=== PATIENT | male | born 1935 | race Caucasian/White ===

== ENCOUNTER 2019-02-16 19:37 | Inpatient (IN) | payer MEDICARE ==
[2019-02-16 20:02] VITALS: BMI 20.5
[2019-02-16] MEDS ORDERED: Acetaminophen 325 MG TAB PO PRN (22:57)
[2019-02-16] MEDS ORDERED: Ventolin HFA Inhaler 60 PUFF INHALER INH PRN (22:58)
[2019-02-16] MEDS ORDERED: Benzonatate 100 MG CAP PO PRN (22:59)
[2019-02-16] MEDS ORDERED: Ipratropium Bromide 0.03% Nasal Inhaler 30 ml Bottle EA NARE PRN (23:03)
[2019-02-16] MEDS ORDERED: Nystatin Powder 15 GM BOT TOP PRN (23:04)
[2019-02-16] MEDS ORDERED: Ondansetron ODT 4 MG TAB PO PRN (23:04)
[2019-02-17] MEDS: Ipratropium Bromide 2.5 ml Neb NEB SCH ×4 (01:20→17:59)
[2019-02-17 05:30] LABS: #Basophils 0.1 thou/uL (0.0-0.2); #Eosinphils 0.5 thou/uL (0.0-0.7); #Lymphocytes 1.9 thou/uL (1.20-3.40); #Monocytes 0.9 thou/uL (0.11-0.59); #Neutrophils 6.8 thou/uL (1.40-6.50); %Basophils 1.4 % (0.0-1.0); %Eosinophils 4.5 % (0.0-10.0); %Lymphocytes 18.7 % (21.0-51.0); %Monocytes 8.9 % (0.0-10.0); %Neutrophils 66.6 % (42.0-75.0); Hemoglobin 8.6 g/dL (14.0-18.0); Mean Corpuscular HGB CONC 31.4 g/dL (32.0-36.0); Mean Corpuscular Hemoglobin 27.2 pg (27.0-31.0); Mean Corpuscular Volume 86.8 fL (78.0-98.0); Mean Platelet Volume 7.2 fL (7.4-10.4); Platelet Count 268 thou/uL (130-400); RBC Distribution Width 15.7 % (11.5-14.5); Red Blood Cell (RBC) Count 3.16 mill/uL (4.70-6.10); White Blood Cell (WBC) Count 10.1 thou/uL (4.8-10.8)
[2019-02-17 05:44] LABS: ALT (SGPT) 12 U/L (8-55); AST (SGOT) 17 U/L (5-34); Albumin 2.9 g/dL (3.4-4.8); Alkaline Phosphatase 77 U/L (40-150); Anion Gap 11 mmol/L (10-20); BUN (Urea Nitrogen) 8 mg/dL (8.4-25.7); Bilirubin, Total 0.4 mg/dL (0.2-1.2); Calc. Creatinine Clearance 82 mL/min (70-130); Calcium 8.4 mg/dL (7.8-10.44); Carbon Dioxide 28 mmol/L (23-31); Chloride 107 mmol/L (98-107); Estimated GFR-MDRD Greater than 90; Globulin 2.6 g/dL (2.4-3.5); Glucose 94 mg/dL (83-110); Potassium 3.2 mmol/L (3.5-5.1); Protein, Total 5.5 g/dL (5.8-8.1); Sodium 143 mmol/L (136-145)
[2019-02-17] MEDS: Folic Acid 1 MG TAB PO SCH (09:01)
[2019-02-17] MEDS: Digoxin 0.125 MG TAB PO SCH (09:02)
[2019-02-17] MEDS: Multivitamin W/ Minerals 1 TAB PO SCH (09:02)
[2019-02-17] MEDS: Cyanocobalamin (Vitamin B-12) 1,000 MCG TAB PO SCH (09:02)
[2019-02-17] MEDS: Amoxicillin/Potassium Clav 875 MG TAB PO SCH ×2 (09:02→21:30)
[2019-02-17] MEDS: Ketotifen Fumarate 0.025% Ophth Soln 5 ml Bottle EA EYE SCH ×2 (09:02→21:30)
--- NOTE | 2019-02-17 16:03 | HP ---
CHIEF COMPLAINT: Recent admission to [facility] in [place] with aspiration pneumonia and acute respiratory failure, who has been treated appropriately and has been transferred here for therapy. BRIEF HISTORY: This is a pleasant 83-year-old male with history of movement disorder and presence of deep brain stimulator has history of recurrent aspiration. He was brought to the hospital with fever, and workup showed new right-sided pleural effusion, which progressed to bilateral infiltrates and bilateral pleural effusion. He was started on antibiotic therapy. He did require BiPAP for a short period. He did improve enough and was felt to be a candidate for inpatient rehabilitation, so transferred here. The patient is currently sitting up in his chair and eating his pureed diet. No family at bedside. It is really actually more a mechanically soft diet. He denies any fever or chills. Discussed with nursing. PAST MEDICAL HISTORY: 1. Chronic atrial fibrillation. 2. Chronic obstructive pulmonary disease. 3. Benign prostatic hypertrophy, requiring indwelling suprapubic catheter. 4. Hypertension. 5. Depression. 6. Recurrent episodes of aspiration. 7. Asymptomatic bacteriuria. 8. Non-Parkinson's type movement disorder. PAST SURGICAL HISTORY: 1. Suprapubic catheter placement. 2. Bilateral hip replacement. 3. Presence of deep brain stimulator placement. 4. Transurethral resection of the prostate. FAMILY HISTORY: Noncontributory to current admission. PSYCHOSOCIAL HISTORY: Former smoker, remote. Denies any alcohol or recreational drug abuse. He is a DNR per old records. ALLERGIES: NO KNOWN DRUG ALLERGIES. MEDICATIONS: He has been transferred here on the following medications: 1. Augmentin 875 mg p.o. b.i.d. till February 19. 2. Digoxin 0.25 mg daily. 3. Diltiazem 120 mg daily. 4. Folic acid 1 mg daily. 5. Ketotifen fumarate 1 drop in each eye b.i.d. 6. Zofran 4 mg ODT q.6 p.r.n. 7. Protonix 40 mg daily. 8. Spiriva 18 mcg inhaled daily. 9. Albuterol via handheld nebulizer q.i.d. p.r.n. 10. Xanax 0.5 mg b.i.d. p.r.n. 11. Iron sulfate 325 mg t.i.d. 12. Lidex cream to hands b.i.d. 13. Ipratropium nasal spray 1 spray in each nostril b.i.d. 14. Multivitamin 1 tablet daily. 15. Sertraline 100 mg daily. REVIEW OF SYSTEMS: CARDIOVASCULAR: The patient denies any chest pain, shortness of breath, palpitations, PND, orthopnea, or pedal edema. RESPIRATORY: Resolved shortness of breath, improving cough, occasional expectoration. Denies any hemoptysis. GASTROINTESTINAL: Denies any nausea, vomiting, diarrhea, constipation, hematemesis, melena, or hematochezia. GENITOURINARY: BPH, requiring chronic suprapubic catheter. CENTRAL NERVOUS SYSTEM: Awake and responsive. Cranial nerves 2 through 12 grossly intact. Mild rigidity noted. No tremors at present. Generalized weakness. No focal numbness, weakness, or fainting spells. Does have chronic movement disorder, which has been diagnosed as non-Parkinson's. PHYSICAL EXAMINATION: GENERAL: Pleasant 83-year-old male, who is resting comfortably in his chair and eating his lunch. No family at bedside. He responds appropriately to questions. VITAL SIGNS: He is afebrile, heart rate 68, respirations 18, oxygen saturation 97% on room air, blood pressure 138/82. HEENT: Normocephalic and atraumatic. Pupils are equally reactive to light and accommodation. NECK: No JVD, thyromegaly, cervical lymphadenopathy, throat exudates, or carotid bruits. CARDIOVASCULAR: S1 and S2 plus. Rate and rhythm are irregularly irregular. RESPIRATORY: Normal vesicular breath sounds with decreased breath sounds in the bases and occasional crackles. ABDOMEN: Soft and nontender. Bowel sounds in all quadrants. EXTREMITIES: Without cyanosis or clubbing. Some muscle atrophy is noted. Peripheral pulses are palpable. CENTRAL NERVOUS SYSTEM: AAO x3. Cranial nerves 2 through 12 intact. Generalized weakness. IMPRESSION: 1. Resolving aspiration pneumonitis. 2. Asymptomatic bacteriuria. 3. Resolved acute respiratory failure. 4. Chronic obstructive pulmonary disease. 5. Hypertension. 6. Paroxysmal atrial fibrillation. 7. Depression. 8. Benign prostatic hypertrophy. 9. Chronic indwelling Cannon catheter. 10. Non-Parkinson's type movement disorder. PLAN: 1. Continue discharge medications. 2. Monitor for continued improvement of his aspiration pneumonia. 3. Aspiration precautions. 4. Nutritional support. 5. DVT prophylaxis with PlexiPulses. 6. Decubitus precaution. 7. Stress ulcer prophylaxis with Protonix. 8. PT and OT eval and treat. 9. Routine laboratory values. 10. Cannon catheter care. 11. Discussed with the patient and nursing in detail, and all questions were answered. 12. Continue DNR status. 13. No family at bedside. Job ID: [id number]
[2019-02-17] MEDS: ALPRAZolam 0.5 MG TAB PO PRN (21:31)
[2019-02-18] MEDS: Ipratropium Bromide 2.5 ml Neb NEB SCH ×4 (04:18→17:48)
[2019-02-18] MEDS: Amoxicillin/Potassium Clav 875 MG TAB PO SCH ×2 (08:52→20:53)
[2019-02-18] MEDS: Ketotifen Fumarate 0.025% Ophth Soln 5 ml Bottle EA EYE SCH ×2 (08:52→21:26)
[2019-02-18] MEDS: Folic Acid 1 MG TAB PO SCH (08:52)
[2019-02-18] MEDS: Multivitamin W/ Minerals 1 TAB PO SCH (08:52)
[2019-02-18] MEDS: Cyanocobalamin (Vitamin B-12) 1,000 MCG TAB PO SCH (08:53)
[2019-02-18] MEDS: Digoxin 0.125 MG TAB PO SCH (08:53)
--- NOTE | 2019-02-18 15:49 | PRG ---
DATE OF SERVICE: 02/18/2019 SUBJECTIVE: Mr. Evans is doing well. Denies any concerns. His spouse is in the room. He is happy with his progress. Discussed with nursing, and apparently, he is feeling ornery today and refusing to follow directions. No risky behavior. OBJECTIVE: VITAL SIGNS: He is afebrile. Heart rate 70, respirations 20, oxygen saturation 98% on room air, blood pressure 142/83. CARDIOVASCULAR SYSTEM: S1 and S2 plus. RESPIRATORY SYSTEMS: Normal vesicular breath sounds. ABDOMEN: Soft, nontender. Bowel sounds heard in all quadrants. EXTREMITIES: Without cyanosis or clubbing. CENTRAL NERVOUS SYSTEM: Awake and responsive. Significant deconditioning and balance issues. IMPRESSION: 1. Chronic atrial fibrillation. 2. Chronic obstructive pulmonary disease. 3. BPH, requiring indwelling suprapubic catheter. 4. Hypertension. 5. Depression. 6. Recurrent episodes of aspiration and resolving aspiration pneumonitis. PLAN: 1. Continue current medications including antibiotics. 2. Aspiration precautions and nutritional support. 3. DVT and stress ulcer prophylaxis. 4. Decubitus precautions. 5. PT and OT treatment. 6. Routine laboratory values. 7. Stress ulcer prophylaxis. 8. Discussed with the patient, spouse, and nursing in detail. All questions answered. Job ID: [id number]
[2019-02-18] MEDS: Ferrous Sulfate 325 MG TAB PO SCH (20:53)
[2019-02-18] MEDS: ALPRAZolam 0.5 MG TAB PO PRN (20:54)
[2019-02-19] MEDS: Ipratropium Bromide 2.5 ml Neb NEB SCH ×4 (00:26→17:36)
[2019-02-19] MEDS: Amoxicillin/Potassium Clav 875 MG TAB PO SCH ×2 (09:32→21:19)
[2019-02-19] MEDS: Cyanocobalamin (Vitamin B-12) 1,000 MCG TAB PO SCH (09:32)
[2019-02-19] MEDS: Digoxin 0.125 MG TAB PO SCH (09:33)
[2019-02-19] MEDS: Multivitamin W/ Minerals 1 TAB PO SCH (09:33)
[2019-02-19] MEDS: Folic Acid 1 MG TAB PO SCH (09:33)
[2019-02-19] MEDS: Ketotifen Fumarate 0.025% Ophth Soln 5 ml Bottle EA EYE SCH ×2 (09:35→21:18)
[2019-02-19] MEDS: Ferrous Sulfate 325 MG TAB PO SCH (21:19)
[2019-02-19] MEDS: ALPRAZolam 0.5 MG TAB PO PRN (21:21)
[2019-02-20] MEDS: Ipratropium Bromide 2.5 ml Neb NEB SCH ×4 (00:47→17:28)
[2019-02-20] MEDS: Digoxin 0.125 MG TAB PO SCH (09:12)
[2019-02-20] MEDS: Folic Acid 1 MG TAB PO SCH (09:12)
[2019-02-20] MEDS: Multivitamin W/ Minerals 1 TAB PO SCH (09:12)
[2019-02-20] MEDS: Ketotifen Fumarate 0.025% Ophth Soln 5 ml Bottle EA EYE SCH ×2 (09:12→20:33)
[2019-02-20] MEDS: Cyanocobalamin (Vitamin B-12) 1,000 MCG TAB PO SCH (09:12)
[2019-02-20] MEDS ORDERED: Potassium Chloride 20 MEQ TAB PO SCH (13:45)
--- NOTE | 2019-02-20 14:01 | PRG ---
DATE OF SERVICE: 02/20/2019 SUBJECTIVE: Mr. Evans is doing well. Denies any complaints. Resting comfortably. Just working on his lunch. No family at bedside. OBJECTIVE: VITAL SIGNS: He is afebrile. Heart rate 63, respirations 20, oxygen saturation 95% on room air, blood pressure 113/58. CARDIOVASCULAR SYSTEM: S1, S2 plus. RESPIRATORY SYSTEM: Normal vesicular breath sounds. ABDOMEN: Soft, nontender. Bowel sounds heard in all quadrants. EXTREMITIES: Without cyanosis, clubbing. Peripheral pulses are palpable. CENTRAL NERVOUS SYSTEM: Awake and responsive. Generalized weakness. IMPRESSION: 1. Chronic atrial fibrillation. 2. Chronic obstructive pulmonary disease. 3. Benign prostatic hypertrophy requiring indwelling suprapubic catheter. 4. Hypertension. 5. Depression. 6. History of recurrent episodes of aspiration. 7. Resolving aspiration pneumonitis. PLAN: 1. Continue current medications. 2. Nutritional support with heart-healthy diet. 3. Aspiration precautions. 4. DVT prophylaxis with PlexiPulses. 5. Decubitus precautions. 6. Stress ulcer prophylaxis. 7. PT/OT. 8. Routine laboratory values. 9. Discussed with the patient in detail. All questions answered. Job ID: [id number]
--- NOTE | 2019-02-20 14:27 | PRG ---
DATE OF SERVICE: 02/19/2019 SUBJECTIVE: Mr. Evans is sleeping, but arousable. Denies any concerns. Just finished his breakfast. Discussed with nursing. OBJECTIVE: VITAL SIGNS: He is afebrile. Heart rate is 76, respirations 18, oxygen saturation 99% on room air, and blood pressure 144/80. CARDIOVASCULAR SYSTEM: S1 and S2 plus. RESPIRATORY SYSTEM: Normal vesicular breath sounds. ABDOMEN: Soft and nontender. Bowel sounds heard in all quadrants. EXTREMITIES: Without cyanosis or clubbing. CENTRAL NERVOUS SYSTEM: Significant deconditioning. IMPRESSION: 1. Resolving aspiration pneumonitis. 2. Chronic atrial fibrillation. 3. Chronic obstructive pulmonary disease. 4. Hypertension. 5. Depression. 6. Deconditioning. 7. BPH, requiring suprapubic catheter. 8. Hypokalemia. PLAN: 1. Continue current medications, but replace potassium. 2. Aspiration precautions. 3. Nutritional support. 4. DVT and stress ulcer prophylaxis. 5. Decubitus precautions. 6. PT/OT. 7. Catheter care. 8. Discussed with the patient in detail. All questions answered. Job ID: [id number]
[2019-02-21] MEDS: Ipratropium Bromide 2.5 ml Neb NEB SCH ×4 (00:41→15:40)
[2019-02-21 05:23] LABS: #Basophils 0.1 thou/uL (0.0-0.2); #Eosinphils 0.3 thou/uL (0.0-0.7); #Lymphocytes 1.7 thou/uL (1.20-3.40); #Monocytes 0.8 thou/uL (0.11-0.59); #Neutrophils 8.1 thou/uL (1.40-6.50); %Basophils 0.7 % (0.0-1.0); %Eosinophils 3.1 % (0.0-10.0); %Lymphocytes 15.7 % (21.0-51.0); %Monocytes 7.2 % (0.0-10.0); %Neutrophils 73.2 % (42.0-75.0); Hemoglobin 9.3 g/dL (14.0-18.0); Mean Corpuscular HGB CONC 31.3 g/dL (32.0-36.0); Mean Corpuscular Hemoglobin 27.6 pg (27.0-31.0); Mean Platelet Volume 6.7 fL (7.4-10.4); Platelet Count 329 thou/uL (130-400); RBC Distribution Width 16.8 % (11.5-14.5); Red Blood Cell (RBC) Count 3.37 mill/uL (4.70-6.10)
[2019-02-21 05:38] LABS: Anion Gap 12 mmol/L (10-20); BUN (Urea Nitrogen) 8 mg/dL (8.4-25.7); Calc. Creatinine Clearance 79 mL/min (70-130); Calcium 8.7 mg/dL (7.8-10.44); Carbon Dioxide 28 mmol/L (23-31); Chloride 104 mmol/L (98-107); Estimated GFR-MDRD Greater than 90; Glucose 98 mg/dL (83-110); Potassium 3.2 mmol/L (3.5-5.1); Sodium 141 mmol/L (136-145)
[2019-02-21] MEDS: Folic Acid 1 MG TAB PO SCH (08:56)
[2019-02-21] MEDS: Cyanocobalamin (Vitamin B-12) 1,000 MCG TAB PO SCH (08:56)
[2019-02-21] MEDS: Multivitamin W/ Minerals 1 TAB PO SCH (08:57)
[2019-02-21] MEDS: Ketotifen Fumarate 0.025% Ophth Soln 5 ml Bottle EA EYE SCH ×2 (08:57→21:44)
[2019-02-21] MEDS: Digoxin 0.125 MG TAB PO SCH (08:57)
--- NOTE | 2019-02-21 16:01 | PRG ---
DATE OF SERVICE: 02/21/2019 SUBJECTIVE: Mr. Evans is sitting up in his chair and watching TV. He is the most alert that I have seen him. He denies any questions or concerns. No family at bedside. He is having quite a bit of sediment draining from his catheter on and off, but no symptoms of UTI. OBJECTIVE: VITAL SIGNS: He is afebrile. Heart rate 74, respirations 16, blood pressure 138/74, oxygen saturation 94% on room air. CARDIOVASCULAR: S1 and S2 plus. RESPIRATORY: Normal vesicular breath sounds. ABDOMEN: Soft, nontender. Bowel sounds in all quadrants. EXTREMITIES: Without cyanosis, clubbing. CENTRAL NERVOUS SYSTEM: AAO x3. Cranial nerves 2 through 12 intact. Improving deconditioning. LABORATORY DATA: White count is 11, hemoglobin and hematocrit are 9.3 and 29.7. Sodium 141, potassium is still low at 3.2, BUN and creatinine are 8 and 0.69. IMPRESSION: 1. Resolving aspiration pneumonitis. 2. Hypokalemia. 3. Chronic atrial fibrillation. 4. Chronic obstructive pulmonary disease. 5. Hypertension. 6. Depression. 7. Deconditioning. 8. BPH, requiring suprapubic catheter. PLAN: 1. Continue current medications and add potassium 20 mEq daily. 2. Aspiration precautions. 3. Nutritional support. 4. DVT and stress ulcer prophylaxis. 5. Decubitus precaution. 6. Continue physical therapy and occupational therapy. 7. Catheter care. 8. Routine laboratory values. 9. Discussed with the patient in detail. All questions answered. Job ID: [id number]
[2019-02-21] MEDS ORDERED: Potassium Chloride 20 MEQ TAB PO SCH (17:00)
[2019-02-21] MEDS: Ferrous Sulfate 325 MG TAB PO SCH (21:44)
[2019-02-21] MEDS: ALPRAZolam 0.5 MG TAB PO PRN (21:45)
[2019-02-22] MEDS: Ipratropium Bromide 2.5 ml Neb NEB SCH ×4 (01:12→18:38)
[2019-02-22] MEDS: Potassium Chloride 20 MEQ TAB PO SCH (09:53)
[2019-02-22] MEDS: Cyanocobalamin (Vitamin B-12) 1,000 MCG TAB PO SCH (09:53)
[2019-02-22] MEDS: Digoxin 0.125 MG TAB PO SCH (09:53)
[2019-02-22] MEDS: Multivitamin W/ Minerals 1 TAB PO SCH (09:54)
[2019-02-22] MEDS: Ketotifen Fumarate 0.025% Ophth Soln 5 ml Bottle EA EYE SCH ×2 (09:54→21:18)
[2019-02-22] MEDS: Folic Acid 1 MG TAB PO SCH (09:54)
--- NOTE | 2019-02-22 13:25 | PRG ---
DATE OF SERVICE: 02/22/2019 SUBJECTIVE: Mr. Evans is doing well. Denies any complaints. Resting comfortably. He apparently did well with therapy this morning. No family at bedside. OBJECTIVE: VITAL SIGNS: He is afebrile, heart rate 72, respirations 20, oxygen saturation 96% on room air, and blood pressure 118/62. CARDIOVASCULAR SYSTEM: S1 and S2 plus. RESPIRATORY SYSTEM: Normal vesicular breath sounds. ABDOMEN: Soft and nontender. Bowel sounds heard in all quadrants. Urinary catheter in place. EXTREMITIES: Without cyanosis or clubbing. CENTRAL NERVOUS SYSTEM: Awake and responsive, generalized weakness. IMPRESSION: 1. Resolving aspiration pneumonitis. 2. Chronic atrial fibrillation. 3. Chronic obstructive pulmonary disease. 4. Benign prostatic hypertrophy, requiring indwelling suprapubic catheter. 5. Hypertension. 6. Asymptomatic bacteriuria. 7. Depression. 8. Non-Parkinson's type movement disorder. PLAN: 1. Continue current medications. 2. Nutritional support. 3. Monitor respiratory status. 4. Monitor heart rate and rhythm. 5. DVT and stress ulcer prophylaxis. 6. Decubitus precaution. 7. Catheter care. 8. Physical therapy. 9. Routine laboratory values. 10. Discussed with the patient and nursing in detail. All questions answered. Job ID: [id number]
[2019-02-22] MEDS: ALPRAZolam 0.5 MG TAB PO PRN (21:14)
[2019-02-22] MEDS: Ferrous Sulfate 325 MG TAB PO SCH (21:15)
[2019-02-23] MEDS: Ipratropium Bromide 2.5 ml Neb NEB SCH ×4 (00:25→17:49)
[2019-02-23] MEDS: Ketotifen Fumarate 0.025% Ophth Soln 5 ml Bottle EA EYE SCH ×2 (09:40→20:35)
[2019-02-23] MEDS: Cyanocobalamin (Vitamin B-12) 1,000 MCG TAB PO SCH (09:40)
[2019-02-23] MEDS: Potassium Chloride 20 MEQ TAB PO SCH (09:40)
[2019-02-23] MEDS: Digoxin 0.125 MG TAB PO SCH (09:40)
[2019-02-23] MEDS: Folic Acid 1 MG TAB PO SCH (09:41)
[2019-02-23] MEDS: Multivitamin W/ Minerals 1 TAB PO SCH (09:41)
--- NOTE | 2019-02-23 13:57 | PRG ---
DATE OF SERVICE: 02/23/2019 SUBJECTIVE: Mr. Evans is doing well. He is up in his wheelchair and eating his lunch. He saw Neurology today. No changes in his treatment. OBJECTIVE: VITAL SIGNS: He is afebrile. Heart rate is 78, respirations 18, oxygen saturation 95% on room air, blood pressure 140/64. CARDIOVASCULAR SYSTEM: S1, S2 plus. RESPIRATORY SYSTEM: Normal vesicular breath sounds. ABDOMEN: Soft, nontender. Bowel sounds in all quadrants. EXTREMITIES: Without cyanosis, clubbing. Peripherals are palpable. Suprapubic catheter in place. CENTRAL NERVOUS SYSTEM: Awake and responsive. Generalized weakness. IMPRESSION: 1. Resolving aspiration pneumonitis. 2. Urinary retention likely due to benign prostatic hyperplasia, requiring chronic indwelling Cannon. 3. Atrial fibrillation. 4. Chronic obstructive pulmonary disease. 5. Hypertension. 6. Depression. 7. Non Parkinson's type movement disorder. PLAN: 1. Continue current medications. 2. Nutritional support. 3. Aspiration precautions. 4. Heart-healthy diet. 5. DVT and stress ulcer prophylaxis. 6. Decubitus precautions. 7. Urinary catheter care. 8. Physical therapy. 9. Discussed with the patient and nursing in detail. All questions answered. Job ID: [id number]
[2019-02-23] MEDS: Ferrous Sulfate 325 MG TAB PO SCH (20:35)
[2019-02-23] MEDS: ALPRAZolam 0.5 MG TAB PO PRN (20:36)
[2019-02-24] MEDS: Ipratropium Bromide 2.5 ml Neb NEB SCH ×4 (00:39→17:46)
[2019-02-24] MEDS: Multivitamin W/ Minerals 1 TAB PO SCH (08:43)
[2019-02-24] MEDS: Cyanocobalamin (Vitamin B-12) 1,000 MCG TAB PO SCH (08:43)
[2019-02-24] MEDS: Folic Acid 1 MG TAB PO SCH (08:43)
[2019-02-24] MEDS: Digoxin 0.125 MG TAB PO SCH (08:43)
[2019-02-24] MEDS: Potassium Chloride 20 MEQ TAB PO SCH (08:43)
[2019-02-24] MEDS: Ketotifen Fumarate 0.025% Ophth Soln 5 ml Bottle EA EYE SCH ×2 (08:44→21:53)
[2019-02-24] MEDS: Dextrose 5 % And 0.9 % NaCl 1,000 ML IV SCH (14:10)
--- NOTE | 2019-02-24 14:34 | RAD ---
PORTABLE CHEST: 02/24/19 HISTORY: Possible aspiration. COMPARISON: 02/10/19. CP angles are obscured suggesting small bilateral effusions. There may be mild bibasilar atelectasis. Opacity in the left lung base could represent focal infiltrate. I cannot exclude aspiration pneumoni tis. The upper lung zones are clear. Heart size is normal. IMPRESSION: Evidence of small bilateral effusions and bibasilar atelectasis or infiltrates, more prominent on the left. POS: [facility]
[2019-02-25] MEDS: Ipratropium Bromide 2.5 ml Neb NEB SCH ×5 (00:17→23:10)
[2019-02-25 05:15] LABS: #Basophils 0.1 thou/uL (0.0-0.2); #Eosinphils 0.2 thou/uL (0.0-0.7); #Lymphocytes 1.2 thou/uL (1.20-3.40); #Monocytes 0.8 thou/uL (0.11-0.59); #Neutrophils 8.1 thou/uL (1.40-6.50); %Basophils 0.9 % (0.0-1.0); %Eosinophils 1.6 % (0.0-10.0); %Lymphocytes 11.4 % (21.0-51.0); %Monocytes 7.4 % (0.0-10.0); %Neutrophils 78.8 % (42.0-75.0); Hemoglobin 10.5 g/dL (14.0-18.0); Mean Corpuscular HGB CONC 31.1 g/dL (32.0-36.0); Mean Platelet Volume 6.8 fL (7.4-10.4); Platelet Count 342 thou/uL (130-400); RBC Distribution Width 17.3 % (11.5-14.5); Red Blood Cell (RBC) Count 3.76 mill/uL (4.70-6.10); White Blood Cell (WBC) Count 10.3 thou/uL (4.8-10.8)
[2019-02-25] MEDS: Dextrose 5 % And 0.9 % NaCl 1,000 ML IV SCH ×2 (05:17→15:35)
[2019-02-25 05:33] LABS: Digoxin 0.92 ng/mL (0.8-2.0)
[2019-02-25 05:36] LABS: Anion Gap 16 mmol/L (10-20); BUN (Urea Nitrogen) 10 mg/dL (8.4-25.7); Calc. Creatinine Clearance 78 mL/min (70-130); Calcium 9.2 mg/dL (7.8-10.44); Carbon Dioxide 25 mmol/L (23-31); Chloride 106 mmol/L (98-107); Estimated GFR-MDRD Greater than 90; Glucose 119 mg/dL (83-110); Potassium 3.5 mmol/L (3.5-5.1); Sodium 143 mmol/L (136-145)
[2019-02-25] MEDS: Cyanocobalamin (Vitamin B-12) 1,000 MCG TAB PO SCH (08:38)
[2019-02-25] MEDS: Folic Acid 1 MG TAB PO SCH (08:39)
[2019-02-25] MEDS: Digoxin 0.125 MG TAB PO SCH (08:39)
[2019-02-25] MEDS: Potassium Chloride 20 MEQ TAB PO SCH (08:40)
[2019-02-25] MEDS: Multivitamin W/ Minerals 1 TAB PO SCH (08:40)
[2019-02-25] MEDS: Ketotifen Fumarate 0.025% Ophth Soln 5 ml Bottle EA EYE SCH ×2 (08:47→20:46)
--- NOTE | 2019-02-25 13:56 | PRG ---
DATE OF SERVICE: 02/25/2019 SUBJECTIVE: Mr. Evans had an episode of vomiting yesterday. He apparently had a couple of episodes the prior 2 days, but I was not informed. Yesterday, once the nurse noticed this, she contacted me and I made him n.p.o. and consulted Speech Therapy. He has a history of recurrent episodes of aspiration pneumonitis. Speech Therapy felt that his swallowing was decent enough that the pureed diet should be safe for him and she is wondering because these episodes happened after he has taken more than a few bites that whether there may be a mid or distal esophagus obstruction. I spoke with family and they are agreeable for at least an endoscopy to find out if that is the case. They do not want any PEG tube. If the endoscopy turns out to be normal, then they just want him to eat, not worry about the coughing and vomiting and maybe even consider hospice. I spoke with Dr. Villalobos, who apparently did his EGD or who took care of him while he had an episode of GI bleed. This was in [address] Villalobos said he is not on-call, but he is going to call his office and have the staff schedule him for an outpatient EGD tomorrow and they will contact the nurses' station. Nurses are aware to schedule transportation based upon the timing. Hopefully, this will be an outpatient procedure and he will come back. Updated spouse. OBJECTIVE: VITAL SIGNS: The patient is afebrile. Heart rate 85, respirations 18, oxygen saturation 98%, blood pressure 142/79. CARDIOVASCULAR SYSTEM: S1 and S2 plus. RESPIRATORY SYSTEM: Normal vesicular breath sounds. ABDOMEN: Soft and nontender. Bowel sounds heard in all quadrants. EXTREMITIES: Without cyanosis or clubbing. CENTRAL NERVOUS SYSTEM: Awake and responsive. Generalized weakness. LABORATORY DATA: Laboratory values done this morning shows a white count of 10.3, H and H are 10.5 and 33.8. Sodium 143, potassium 3.5, BUN and creatinine are 10 and 0.7. IMPRESSION: 1. Worsening dysphagia with possible odynophagia. 2. History of aspiration pneumonitis. 3. Resolved hypokalemia. 4. Non-Parkinson's type movement disorder. 5. Urinary retention, requiring chronic indwelling catheter. 6. Chronic obstructive pulmonary disease. 7. Hypertension. PLAN: 1. Outpatient EGD once scheduled. 2. Keep him n.p.o., but okay for ice chips. 3. Switch his Cardizem CD to Cardizem immediate release 30 mg t.i.d. 4. Discussed with family and they really want to focus more on comfort care, but agreeable for EGD. If it is just a stricture that can be ballooned, so that he can continue to eat his pureed diet without any issues. 5. Continue PT/OT. 6. Cannon catheter care. 7. Discussed with the patient and nursing in detail. All questions answered. Job ID: [id number]
[2019-02-26 05:17] LABS: #Basophils 0.1 thou/uL (0.0-0.2); #Lymphocytes 0.9 thou/uL (1.20-3.40); #Monocytes 0.8 thou/uL (0.11-0.59); %Basophils 0.7 % (0.0-1.0); %Eosinophils 0.1 % (0.0-10.0); %Lymphocytes 5.9 % (21.0-51.0); %Monocytes 5.3 % (0.0-10.0); %Neutrophils 88.1 % (42.0-75.0); Hemoglobin 10.8 g/dL (14.0-18.0); Mean Corpuscular HGB CONC 30.8 g/dL (32.0-36.0); Mean Corpuscular Hemoglobin 27.7 pg (27.0-31.0); Mean Corpuscular Volume 89.9 fL (78.0-98.0); Mean Platelet Volume 6.8 fL (7.4-10.4); Platelet Count 334 thou/uL (130-400); RBC Distribution Width 17.8 % (11.5-14.5); Red Blood Cell (RBC) Count 3.89 mill/uL (4.70-6.10); White Blood Cell (WBC) Count 14.8 thou/uL (4.8-10.8)
[2019-02-26 05:28] LABS: Anion Gap 15 mmol/L (10-20); BUN (Urea Nitrogen) 9 mg/dL (8.4-25.7); Calc. Creatinine Clearance 86 mL/min (70-130); Calcium 9.1 mg/dL (7.8-10.44); Carbon Dioxide 25 mmol/L (23-31); Chloride 108 mmol/L (98-107); Estimated GFR-MDRD Greater than 90; Glucose 133 mg/dL (83-110); Potassium 3.7 mmol/L (3.5-5.1); Sodium 144 mmol/L (136-145)
[2019-02-26] MEDS: Ipratropium Bromide 2.5 ml Neb NEB SCH ×2 (05:37→12:20)
[2019-02-26] MEDS: Dextrose 5 % And 0.9 % NaCl 1,000 ML IV SCH (05:38)
[2019-02-26] MEDS: Cyanocobalamin (Vitamin B-12) 1,000 MCG TAB PO SCH (10:09)
[2019-02-26] MEDS: Folic Acid 1 MG TAB PO SCH (10:09)
[2019-02-26] MEDS: Digoxin 0.125 MG TAB PO SCH (10:09)
[2019-02-26] MEDS: Multivitamin W/ Minerals 1 TAB PO SCH (10:10)
[2019-02-26] MEDS: Ketotifen Fumarate 0.025% Ophth Soln 5 ml Bottle EA EYE SCH (10:10)
[2019-02-26] MEDS: Potassium Chloride 20 MEQ TAB PO SCH (10:10)
[2019-02-26 15:08] VITALS: TEMP 98.1
[2019-02-26 15:25] VITALS: BP 151/83
--- NOTE | 2019-02-27 15:40 | DIS ---
DATE OF ADMISSION: 02/16/2019 DATE OF DISCHARGE: 02/26/2019 PRINCIPAL DIAGNOSIS: Aspiration pneumonitis. SECONDARY DIAGNOSES: 1. Sudden onset of episodes of vomiting with eating, requiring upper gastrointestinal evaluation. 2. Chronic atrial fibrillation. 3. Chronic obstructive pulmonary disease. 4. Benign prostatic hypertrophy. 5. Hypertension. 6. Depression. 7. Non Parkinson type movement disorder. COMPLICATIONS: None. ADVERSE REACTIONS: None. PROCEDURES: None. CONSULTATIONS: None. HOSPITAL COURSE: The patient was transferred after being admitted to the hospital with aspiration pneumonia and acute respiratory failure. He was transferred here for therapy. He has been doing well and participating with therapy and tolerating his pureed diet. On , he apparently had episode of vomiting after eating and this apparently happened twice before, but I was not informed. Speech Therapy was consulted and he was made n.p.o. Speech Therapy stated that his swallowing seemed okay and they were concerned about possible mid or lower esophageal obstruction. I started him on IV fluids and spoke with the . She did not want any aggressive treatment, but she did want to find out what this might be and Dr. Villalobos had seen him in the past. I talked to Dr. Villalobos and outpatient EGD was scheduled for Friday, so he was sent the forging engineer on Friday for the procedure. He was supposed to come back, but apparently they found bilious fluid in his stomach and his lower esophagus with concern for possible obstruction versus SMA syndrome. The patient here has been having bowel movement and his bowel sounds have been heard in all quadrants, so they decided to admit him to the hospital there. DISCHARGE MEDICATIONS: He was discharged on his current medications, which are; 1. Tylenol 650 q.4 p.r.n. 2. DuoNeb 3 mL q.i.d. p.r.n. 3. Xanax 0.5 p.o. b.i.d. 4. Digoxin 0.25 mg daily. 5. Cardizem. He was on extended-release, but I changed it to 30 mg t.i.d. 6. Iron sulfate 325 mg daily. 7. Folic acid one tablet daily. 8. Protonix 40 mg daily. 9. Potassium 20 mEq daily. 10. Zoloft 100 mg daily. He will be followed by the hospitalist service. For full details, please see chart. Job ID: [id number]
== END 2019-02-26 17:49 | disposition short-term general hospital (02) | DRG 177 ==
LOC: NAV ACUTE 19:37
PROVIDERS: ADMIT Internal Medicine; ATTEND Internal Medicine
DX: J69.0 Pneumonitis due to inhalation of food and vomit (principal); J96.00 Acute respiratory failure, unspecified whether with hypoxia or hypercapnia; G25.9 Extrapyramidal and movement disorder, unspecified; Z66 Do not resuscitate; I48.2 Chronic atrial fibrillation; J44.9 Chronic obstructive pulmonary disease, unspecified; N40.0 Benign prostatic hyperplasia without lower urinary tract symptoms; I10 Essential (primary) hypertension; F32.9 Major depressive disorder, single episode, unspecified; R82.71 Bacteriuria; E87.6 Hypokalemia; R33.8 Other retention of urine; R13.10 Dysphagia, unspecified; Z96.643 Presence of artificial hip joint, bilateral; Z90.79 Acquired absence of other genital organ(s); Z87.891 Personal history of nicotine dependence
CPT/HCPCS: 36415; 71045; 80048; 80053; 80162; 85025; J7042; J7620